=== PATIENT | male | born 1960 | race Caucasian/White ===

== ENCOUNTER 2022-10-29 11:19 | Outpatient (REF) | payer OTHER, SELFPAY ==
[2022-10-29 13:47] LABS: Appearance Urine Clear; Color Urine Yellow; Glucose Urine UA Negative (Negative); Leukocyte Esterase Urine Negative (Negative); Nitrite Urine Negative (Negative); PH 5.5 (5.0-9.0); Specific Gravity - Urine 1.025 (1.005-1.025); Urine Blood Negative (Negative); Urine Ketones Negative (Negative); Urine Protein Trace mg/dL (Neg-Trace)
[2022-10-29 13:49] LABS: Baso%MD 0.4 %; Eos%MD 3.1 %; Hematocrit 44.9 % (42.0-52.0); Hemoglobin 15.4 g/dl (14.0-18.0); IG%MD 0.4 %; Lymph%MD 30.3 %; Mean Corpuscular HGB Conc 34.3 g/dl (31.0-36.0); Mean Corpuscular Hemoglobin 32.8 pg (27.0-33.0); Mean Corpuscular Volume 95.5 fL (80.0-98.0); Mean Platelet Volume 12.4 fL (9.4-12.4); Mono%MD 6.6 %; Neut%MD 59.2 %; Platelet Count 151 X10*3/uL (160-400); Red Cell Distribution Width 11.7 % (11.0-16.0); White Blood Count 5.1 X10*3/uL (4.8-10.8)
[2022-10-29 13:50] LABS: Bacteria Urine None Seen (None Seen); Hyaline Casts Urine 0-2 /LPF (0-2); RBC Urine 0-2 /HPF (0-2); Squamous Epithelial Cell Urine 0-2 /HPF (0-2); WBC Urine 0-5 /HPF (0-5)
[2022-10-29 14:42] LABS: Alanine Aminotransferase 30 U/L (0-40); Albumin Level 4.7 g/dL (3.5-5.0); Alkaline Phosphatase 98 U/L (39-117); Anion Gap 13 (12-20); Aspartate Amino Transferase 27 U/L (5-37); Bilirubin Total 0.7 mg/dL (0.0-1.0); Blood Urea Nitrogen 13 mg/dL (9-16); Calcium 9.7 mg/dL (8.4-10.2); Carbon Dioxide 29 mmol/L (22-29); Chloride 107 mmol/L (96-108); Cholesterol 194 mg/dL; Estimated Glomerular Filt Rate > 60; Glucose Fasting 98 mg/dL (60-99); HDL Cholesterol 67 mg/dL; LDL Cholesterol Calculated 105 mg/dl; Potassium 3.9 mmol/L (3.3-5.1); Sodium 145 mmol/L (135-145); Total Protein 7.1 g/dL (6.5-8.0); Triglycerides 112 mg/dL
[2022-10-29 14:45] LABS: TSH reflex Free T4 2.66 uIU/mL (0.32-4.0)
[2022-10-29 15:06] LABS: Band Neutrophils Percent 1 % (3-5); Basophils Abs Manual 0.1 X10*3/uL (0.0-0.2); Basophils Percent Manual 1 % (0-2); Eosinophils Absolute Manual 0.1 X10*3/uL (0.0-0.4); Eosinophils Percent Manual 1 % (0-4); Lymphocytes Absolute Manual 1.6 X10*3/uL (1.2-4.9); Lymphocytes Percent Manual 31 % (20-40); Monocytes Absolute Manual 0.2 X10*3/uL (0.1-1.2); Monocytes Percent Manual 4 % (2-11); Neutrophils Absolute Manual 3.2 X10*3/uL (2.0-8.3); Neutrophils Percent Manual 62 % (45-73)
[2022-10-29 15:07] LABS: RBC Morphology NORMAL
[2022-10-29 15:08] LABS: Large Platelet PRESENT; Platelet Estimate SLIGHTLY DECREASED (NORMAL); Platelet Morphology Comment NOTED
[2022-11-02 19:23] LABS: PSA, Ultra Sensitive 1.04 ng/mL
== END 2022-10-29 11:20 | disposition home or self-care (01) ==
LOC: HO.HMGCLDS 11:19
PROVIDERS: PCP Internal Medicine; Visit Provider Internal Medicine
DX: Z12.5 Encounter for screening for malignant neoplasm of prostate (principal); I48.91 Unspecified atrial fibrillation; I10 Essential (primary) hypertension; E78.5 Hyperlipidemia, unspecified
CPT/HCPCS: 36415; 80053; 80061; 81001; 84153; 84443; 85007; 85027

== ENCOUNTER 2022-10-31 12:58 | Outpatient (AMB) | payer OTHER, SELFPAY ==
--- NOTE | 2022-10-31 13:05 | A.OFFPC_ITS ---
Vital Signs 10/31/22 13:06 Height 6 ft 1 in Weight 192 lb 8 oz BMI 25.4 BP 140/82 H Blood Pressure Location Lt brachial Position Sitting Pulse 87 Pulse Source Pulse Oximeter Pulse Oximetry (%) 98 Oxygen Delivery Method Room Air Intake Visit Reasons: Annual PE Allergies No Known Allergies Allergy (Verified 10/31/22 13:09) Medication List - Last Reconciled 10/31/22 by Afshan Perla MD apixaban (Eliquis) 5 mg PO BID diltiazem HCl ER 300 mg PO DAILY rosuvastatin (Crestor) 10 mg PO DAILY Tobacco use date assessed: 10/31/22 Dental Screening Dental Screen Date: 10/31/22 Did you have a dental visit in the last 12 months?: Yes Did you have a dental problem in the last 6 months where you did not have access to dental care?: No Was dental information given to patient?: No HPI Annual PE HPI Details patient presents for physical. He underwent cardioversion 2 weeks ago for recurrent AFib. pt denies palpitation chest pain or shortness of breath. [facility] Social History Housing: House Patient Tobacco Use Status: Never used Tobacco e-Cigarette/Vaping Use: Never Used service: No Current occupational status: employed Cognitive needs: No Hearing needs: No Vision needs: No Questionnaire PHQ-9 Over the last 2 weeks, how often have you been bothered by any of the following problems? 1. Little interest or pleasure in doing things: not at all 2. Feeling down, depressed, or hopeless: not at all 3. Trouble falling or staying asleep, or sleeping too much: not at all 4. Feeling tired or having little energy: not at all 5. Poor appetite or overeating: not at all 6. Feeling bad about yourself - or that you are a failure or have let yourself or your family down: not at all 7. Trouble concentrating on things, such as reading the newspaper or watching television: not at all 8. Moving or speaking so slowly that other people could have noticed. Or the opposite - being so fidgety or restless that you have been moving around a lot more than usual: not at all 9. Thoughts that you would be better off or of hurting yourself in some way: not at all Total score: 0 Depression Screening Interpretation: Negative Source: Developed by Bel Bowden Kurt Kroenke and colleagues, with an educational isabel from [employer]. Thrive Questionnaire Date Thrive assessed: 10/31/22 I am a: Patient What is your living situation today?: I have a steady place to live Within the past 12 months, did the food you bought not last and you didn't have the money to get more?: Never true Within the past 12 months, did you worry whether your food would run out before you got money to buy more?: Never true Do you have trouble paying for medicines?: No Do you have trouble getting transportation to medical appointments?: No Do you have trouble paying your heating and electricity bill?: No Do you have trouble taking care of your child, family member or friend?: No Do you have trouble with day-to-day activities such as bathing, preparing meals, shopping, managing finances, etc.?: No Are you currently unemployed and looking for a job?: No Are you interested in more education?: No AUDIT C Alcohol Use Questionnaire (AUDIT-C) 1. How often do you have a drink containing alcohol?: Monthly or less 2. How many drinks containing alcohol do you have on a typical day when you are drinking?: 1 or 2 3. How often do you have six or more drinks on one occasion?: Never Total Score: 1 Score Reviewed/Action Taken: Yes MADDISON-7 AMB Questionnaire MADDISON-7 Date MADDISON - 7 assessed: 10/31/22 Feeling nervous, anxious, or on edge: 0 = Not at all Not being able to stop or control worryin = Not at all Worrying too much about different things: 0 = Not at all Trouble relaxin = Not at all Being so restless that it is hard to sit still: 0 = Not at all Becoming easily annoyed or irritable: 0 = Not at all Feeling afraid as if something awful might happen: 0 = Not at all Total MADDISON-7 score (0-4 normal; 5-9 mild; 10-14 moderate; 15-21 severe): 0 Source: Developed by Bel Bowden Kurt Kroenke and colleagues, with an educational isabel from [employer]. Review of Systems Const All systems reviewed & are unremarkable except as noted in HPI and below Reports no additional complaints Eyes Reports no additional complaints ENT Reports no additional complaints Card Reports no additional complaints Resp Reports no additional complaints GI Reports no additional complaints Reports no additional complaints Physical exam (Primary Care) Vital Signs: Last Vital Signs Pulse 87 10/31/22 13:06 BP 140/82 H 10/31/22 13:06 Pulse Ox 98 10/31/22 13:06 Oxygen Delivery Method Room Air 10/31/22 13:06 BMI result Body Mass Index 25.4 Tobacco/Smoking Status: Tobacco use Status Tobacco use date assessed 10/31/22 10/31/22 13:09 Patient Tobacco Use Status Never used Tobacco 10/31/22 13:09 e-Cigarette/Vaping Use Never Used 10/31/22 13:09 Depression Screening Interpretation: Negative Const General: no acute distress HENMT Head: Yes normal to inspection Ears: hearing grossly normal bilaterally Face and sinus: Yes normal facial exam Teeth and gingiva: dentition normal Eyes General: appearance normal, both eyes and all related structures Neck Neck: Yes no lymphadenopathy and Yes supple Resp Effort & Inspection: normal respiratory effort Auscultation: clear to auscultation bilaterally Cardio Rhythm: regular rhythm Heart sounds: S1 normal heart sound present and S2 normal heart sound present GI Inspection: Yes normal to inspection Palpation (GI): Soft to palpation Percussion: Yes normal to percussion Auscultation: normal bowel sounds Assessment and Plan Assessment & Plan (1) Hx of colonoscopy: Comment: 2015, recheck in 5 yrs Code(s): Z98.890 - Other specified postprocedural states Plan: Referred to GI for colonoscopy (2) A-fib: Comment: 04/30 and 06/28 hospitalized at [facility], s/p cardioversion 10/28 Code(s): I48.91 - Unspecified atrial fibrillation Plan: follow-up with Cardiology at [facility], cutting down on alcohol intake discussed with the patient. EKG today A fib with HR 84, (3) HTN (hypertension): Code(s): I10 - Essential (primary) hypertension Plan: increase Ditiazem to 300 mg for HTN and A fib (4) Hyperlipidemia: Code(s): E78.5 - Hyperlipidemia, unspecified Plan: cont statin (5) Annual physical exam: Code(s): Z00.00 - Encounter for general adult medical examination without abnormal findings Plan: well balanced diet and regular exercise discussed.f/u 2 months Orders: Referrals Gastroenterology Referral Z00.00 - Encounter for general adult medical examination without abnormal findings, Z98.890 - Other specified postprocedural states Medications: New diltiazem HCl ER 300 mg PO DAILY 90 caps 0RF Discontinued diltiazem HCl ER (DILT-XR) Discontinued Reason: Doctor's Order 240 mg PO DAILY 90 caps 1RF Coding Level of Care Code Est Pt Prev Care 40-64y(20621) Diagnoses Hx of colonoscopy Z98.890 A-fib I48.91 HTN (hypertension) I10 Hyperlipidemia E78.5 Annual physical exam Z00.00
[2022-10-31 13:06] VITALS: BP 140/82; PULSE 87; O2SAT 98; BMI 25.4
== END 2022-10-31 14:14 | disposition home or self-care (01) ==
PROVIDERS: Visit Provider Internal Medicine
DX: Z98.890 Other specified postprocedural states (principal); I48.91 Unspecified atrial fibrillation; I10 Essential (primary) hypertension; E78.5 Hyperlipidemia, unspecified; Z00.00 Encounter for general adult medical examination without abnormal findings
CPT/HCPCS: 99396

== ENCOUNTER 2023-01-02 13:54 | Outpatient (AMB) | payer OTHER, SELFPAY ==
[2023-01-02 14:19] VITALS: BP 140/90; PULSE 102; O2SAT 97; BMI 25.7
--- NOTE | 2023-01-02 14:19 | MHC.PC.OV ---
Vital Signs 01/02/23 14:19 Height 6 ft 1 in Weight 195 lb BMI 25.7 BP 140/90 H Blood Pressure Location Lt brachial Position Sitting Pulse 102 H Pulse Source Pulse Oximeter Pulse Oximetry (%) 97 Oxygen Delivery Method Room Air Intake Visit Reasons: 2m follow up Intake Note: Pt is here today for 2 months follow up visit. Allergies No Known Allergies Allergy (Verified 01/02/23 14:22) Tobacco use date assessed: 01/02/23 HPI 2m follow up HPI Details Patient presents for the follow-up of paroxysmal AFib hypertension hyperlipidemia. He denies recurrent palpitations and has been taking Eliquis for anticoagulation. Patient will have a repeat echocardiogram ordered by cardiology for cardiomyopathy with decreased ejection fraction while in atrial fibrillation with RVR. [facility] Social History Housing: House Patient Tobacco Use Status: Never used Tobacco e-Cigarette/Vaping Use: Never Used service: No Current occupational status: employed Cognitive needs: No Hearing needs: No Vision needs: No Questionnaire Thrive Questionnaire Date Thrive assessed: 10/31/22 MADDISON-7 AMB Questionnaire MADDISON-7 Date MADDISON - 7 assessed: 10/31/22 Source: Developed by Drs. Felipe Penaloza, Bel Lovett, Bernardo Moore and colleagues, with an educational isabel from [employer]. Review of Systems Const All systems reviewed & are unremarkable except as noted in HPI and below Reports no additional complaints Eyes Reports no additional complaints ENT Reports no additional complaints Card Reports no additional complaints Resp Reports no additional complaints GI Reports no additional complaints Physical exam (Primary Care) Vital Signs: Last Vital Signs Pulse 102 H 01/02/23 14:19 BP 140/90 H 01/02/23 14:19 Pulse Ox 97 01/02/23 14:19 Oxygen Delivery Method Room Air 01/02/23 14:19 BMI result Body Mass Index 25.7 Tobacco/Smoking Status: Tobacco use Status Tobacco use date assessed 01/02/23 01/02/23 14:24 Patient Tobacco Use Status Never used Tobacco 01/02/23 14:24 e-Cigarette/Vaping Use Never Used 01/02/23 14:24 Thrive Assessment: Date of Thrive Assessment Date Thrive assessed 10/31/22 01/02/23 14:24 Const General: no acute distress HENMT Head: Yes normal to inspection Ears: hearing grossly normal bilaterally Throat: Yes posterior oropharynx normal Eyes General: appearance normal, both eyes and all related structures Neck Neck: Yes supple Cardio Rhythm: regular rhythm Heart sounds: S1 normal heart sound present and S2 normal heart sound present GI Inspection: Yes normal to inspection Palpation (GI): Soft to palpation Percussion: Yes normal to percussion Auscultation: normal bowel sounds Assessment and Plan Assessment & Plan (1) HTN (hypertension): Code(s): I10 - Essential (primary) hypertension Plan: Add 5 mg of lisinopril for better blood pressure controlled and cardiomyopathy. Check basic metabolic panel in 1 week (2) A-fib: Comment: 04/30 and 06/28 hospitalized at [facility], s/p cardioversion 10/28 Code(s): I48.91 - Unspecified atrial fibrillation Plan: Continue Cardizem and follow-up with Cardiology for repeat echocardiogram. Patient will continue on Eliquis (3) Hyperlipidemia: Code(s): E78.5 - Hyperlipidemia, unspecified Plan: Continue statin Orders: Orders Basic Metabolic Panel 1 Week I10 - Essential (primary) hypertension, I48.91 - Unspecified atrial fibrillation Medications: New lisinopril 5 mg PO DAILY 30 tabs 1RF Coding Level of Care Code Est Pt Level 4 (57144) Diagnoses HTN (hypertension) I10 A-fib I48.91 Hyperlipidemia E78.5
== END 2023-01-02 15:12 | disposition home or self-care (01) ==
LOC: HO.HMGC 13:54
PROVIDERS: PCP Internal Medicine; Visit Provider Internal Medicine
DX: I10 Essential (primary) hypertension (principal); I48.91 Unspecified atrial fibrillation; E78.5 Hyperlipidemia, unspecified
CPT/HCPCS: 99214

== ENCOUNTER 2023-01-23 15:23 | Outpatient (AMB) | payer OTHER, SELFPAY ==
--- NOTE | 2023-01-23 15:29 | MHC.OFFVIS ---
Intake Vital Signs 01/23/23 15:32 Height 6 ft 1 in Weight 190 lb 0.615 oz BMI 25.1 BP 171/107 H Blood Pressure Location Rt brachial Position Sitting Pulse 126 H Intake Visit Reasons: Colonoscopy Screening Intake Note: Patient presents to in office visit today as a new patient for colonoscopy screening. CC: Patient denies having any GI symptoms today. Last colonoscopy done about 7 years ago at [facility]. Attorney At Law Required: No Accompanied by: Self / Same As Patient Allergies No Known Allergies Allergy (Verified 01/23/23 15:40) HPI Colonoscopy Screening HPI Details 62-year-old male here for preprocedural meeting to discuss a screening colonoscopy. He is referred by Afshan Perla of [facility] primary care. PMX AFib-on Eliquis Nonischemic cardiomyopathy with reduced left ventricular ejection fraction Echocardiogram showing reduced left ventricular ejection fraction of 20-25%? Did this improve after cardioversion Hypertension High cholesterol Bilateral lung infiltrate (CT shows ground-glass opacities consistent with viral pneumonia) * SURGICAL HISTORY Colonoscopy 2016 Cardioversion for ib-[facility] Deviated septum repair 10 yrs ago * ALLERGIES: NKDA * Viraloid LABS: Laboratory Tests 10/29/22 10:28 WBC 5.1 Hgb 15.4 Hct 44.9 Plt Count 151 L Estimated GFR > 60 Total Bilirubin 0.7 AST 27 ALT 30 Alkaline Phosphata se 98 TSH 2.66 TODAY'S VISIT He has had 2 prior colonoscopies he is unsure if this was at [facility] or [facility] (? Dr. Mon/Gilberto). He is unsure if there were polyps. He has new on set afib and is on Eliquis, Dr. Jai Lopez at cardiology. We will need clearance to stop this from them. There are no prior problems with anesthesia or sedation. He denies any bowel or upper GI problems. No ID problems. His mother had colon polyps. [facility] Medical History History of cardioversion Surgical History Hx of colonoscopy Social History Housing: House Patient Tobacco Use Status: Never used Tobacco e-Cigarette/Vaping Use: Never Used service: No Current occupational status: employed Cognitive needs: No Hearing needs: No Vision needs: No Review of Systems Const Denies fatigue, Denies fever(s), Denies night sweats, Denies poor appetite and Denies weight loss ENT Reports Normal hearing present, Denies dental pain, Denies dysphagia, Denies hearing loss, Denies mouth pain, Denies odynophagia, Denies throat swelling, Denies tongue swelling and Reports other (Dentition adequate) Card Reports no additional complaints Resp Reports no additional complaints GI Denies abdominal pain, Denies melena, Denies bloating, Denies hematochezia, Denies constipation, Denies GI cramping, Denies dysphagia, Denies excessive flatus, Denies early satiety, Denies heartburn, Denies diarrhea, Denies nausea, Denies odynophagia, Denies vomiting and Denies hematemesis Skin/Breast Denies pruritus, Denies lesions, Denies rash and Denies jaundice Neuro Reports Normal hearing present and Denies Abnormal speech present Endo Denies fatigue Aller/Immun Denies throat swelling and Denies tongue swelling Physical Exam Vital Signs: Last Vital Signs Pulse 126 H 01/23/23 15:32 BP 171/107 H 01/23/23 15:32 BMI result Body Mass Index 25.1 Const General: cooperative, no acute distress, well developed and well groomed Nutritional Appearance: average body habitus and well nourished Orientation/consciousness: oriented to person, oriented to place and oriented to time Limitations: No language barrier HEENT Head: Yes normocephalic and Yes atraumatic Eyes General: appearance normal, both eyes and all related structures Pupils: Equal, round and reactive pupils present Neck Neck: Yes normal visual inspection and Yes no lymphadenopathy Thyroid: Thyroid normal Resp Effort & Inspection: normal respiratory effort and able to speak in complete sentences Auscultation: clear to auscultation bilaterally Cardio Rate: regular rate Rhythm: abnormal rhythm irregularly irregular Heart sounds: Normal, physiologic split S2 sound present Peripheral pulses: radial pulses present and posterior tibial pulses present GI Inspection: No distended and No Abdominal panniculus present Palpation (GI): Soft to palpation, nontender, no guarding, not rigid and No hepatosplenomegaly present Percussion: Yes normal to percussion Auscultation: normal bowel sounds Rectal Exam - Male: Yes deferred Skin General skin exam: no rashes or lesions noted, turgor normal, skin not dry, no jaundice, No spider nevi and no striae Rashes: no rashes Nails: normal Neuro General: oriented to person, oriented to place and oriented to time Cranial nerves: Yes Equal, round and reactive pupils present and Yes Normal hearing present Speech: No Abnormal speech present Extrem General: Yes normal to inspection, No clubbing, No cyanosis and No edema Psych Appearance: grossly normal and well kempt Mental Status: mental status grossly normal Speech and movement: Normal speech and movement present Affect: normal affect Attitude: cooperative Thought process: Normal thought process present and not confabulating Thought content: Normal thought content present Insight: Limited insight present (Psych) Judgement: Limited judgement present (Psych) Assessment & Plan Assessment & Plan (1) Pre-op examination: Code(s): Z01.818 - Encounter for other preprocedural examination Plan: He has had 2 prior colonoscopies he is unsure if this was at [facility] or [facility] (? Dr. Mon/Gilberto). He is unsure if there were polyps. He has new on set afib and is on Ivon, Dr. Jai Lopez at cardiology. We will need clearance to stop this from them. There are no prior problems with anesthesia or sedation. He denies any bowel or upper GI problems. No ID problems. His mother had colon polyps. (2) Nonischemic cardiomyopathy: Code(s): I42.8 - Other cardiomyopathies (3) A-fib: Comment: 04/30 and 06/28 hospitalized at [facility], s/p cardioversion 10/28 Code(s): I48.91 - Unspecified atrial fibrillation (4) Family history of polyps in the colon: Code(s): Z83.719 - Family history of colon polyps, unspecified Orders: Orders Colonoscopy - GI Use Only Today Z83.719 - Family history of colon polyps, unspecified Medications: New peg 3350-electrolytes 236-22.74-6.74 -5.86 gram (Golytely) until fecal effluent is clear; do not exceed a total volume of 2,000 mL 240 mL PO Q10M 1 day 4,000 mL 0RF Z12.11 - Encounter for screening for malignant neoplasm of colon Coding Level of Care Code New Pt Level 3 (22104) Diagnoses Pre-op examination Z01.818 Nonischemic cardiomyopathy I42.8 A-fib I48.91 Family history of polyps in the colon Z83.719
[2023-01-23 15:32] VITALS: BP 171/107; PULSE 126; BMI 25.1
== END 2023-01-23 16:18 | disposition home or self-care (01) ==
PROVIDERS: PCP Internal Medicine; Visit Provider Nurse Practitioner
DX: Z01.818 Encounter for other preprocedural examination (principal); I42.8 Other cardiomyopathies; I48.91 Unspecified atrial fibrillation; Z83.719 Family history of colon polyps, unspecified
CPT/HCPCS: 99203

== ENCOUNTER → 2023-01-23 15:23 | Outpatient (BNVA) | payer OTHER, SELFPAY | PROVIDERS: PCP Internal Medicine; Visit Provider Nurse Practitioner ==

== ENCOUNTER 2023-02-21 11:00 | Outpatient (AMB) | payer OTHER, SELFPAY ==
[2023-02-21 11:05] VITALS: BP 140/80; PULSE 87; O2SAT 98; BMI 26.0
--- NOTE | 2023-02-21 11:05 | A.OFFPC_ITS ---
Vital Signs 02/21/23 11:05 Height 6 ft 1 in Weight 197 lb BMI 26.0 BP 140/80 H Blood Pressure Location Rt brachial Position Sitting Pulse 87 Pulse Source Pulse Oximeter Pulse Oximetry (%) 98 Oxygen Delivery Method Room Air Intake Visit Reasons: one month fu Intake Note: pt is here for 1 month f/u Tire Inspector Required: No Accompanied by: Self / Same As Patient Allergies lisinopril Adverse Reaction (Intermediate, Verified 02/21/23 11:29) pruritus Medication List - Last Reconciled 02/21/23 by Afshan Perla MD apixaban (Eliquis) 5 mg PO BID diltiazem HCl ER 300 mg PO DAILY olmesartan 20 mg PO DAILY rosuvastatin (Crestor) 10 mg PO DAILY Tobacco use date assessed: 02/21/23 Dental Screening Dental Screen Date: 02/21/23 Did you have a dental visit in the last 12 months?: Yes Did you have a dental problem in the last 6 months where you did not have access to dental care?: No Was dental information given to patient?: Patient has dentist HPI one month fu HPI Details Patient presents for the follow-up of hypertension and tachycardia induced cardiomyopathy, recovered EF%. Pt could not tolerate Lisinopril, pruritus but no rash. PFSH Medical History History of cardioversion Surgical History Hx of colonoscopy Social History Housing: House Patient Tobacco Use Status: Never used Tobacco e-Cigarette/Vaping Use: Never Used service: No Current occupational status: employed Cognitive needs: No Hearing needs: No Vision needs: No Questionnaire Thrive Questionnaire Date Thrive assessed: 10/31/22 MADDISON-7 AMB Questionnaire MADDISON-7 Date MADDISON - 7 assessed: 10/31/22 Source: Developed by Drs. Felipe Penaloza, Bel Lovett, Bernardo Moore and colleagues, with an educational isabel from [employer]. Review of Systems Const All systems reviewed & are unremarkable except as noted in HPI and below Reports no additional complaints Eyes Reports no additional complaints ENT Reports no additional complaints Card Reports no additional complaints Resp Reports no additional complaints GI Reports no additional complaints Reports no additional complaints Physical exam (Primary Care) Vital Signs: Last Vital Signs Pulse 87 02/21/23 11:05 BP 140/80 H 02/21/23 11:05 Pulse Ox 98 02/21/23 11:05 Oxygen Delivery Method Room Air 02/21/23 11:05 BMI result Body Mass Index 26.0 Tobacco/Smoking Status: Tobacco use Status Tobacco use date assessed 02/21/23 02/21/23 11:06 Patient Tobacco Use Status Never used Tobacco 02/21/23 11:06 e-Cigarette/Vaping Use Never Used 02/21/23 11:06 Thrive Assessment: Date of Thrive Assessment Date Thrive assessed 10/31/22 02/21/23 11:06 Const General: no acute distress HENMT Head: Yes normal to inspection Face and sinus: Yes normal facial exam Resp Effort & Inspection: normal respiratory effort Auscultation: clear to auscultation bilaterally Cardio Rhythm: regular rhythm Heart sounds: S1 normal heart sound present and S2 normal heart sound present Assessment and Plan Assessment & Plan (1) Nonischemic cardiomyopathy: Comment: recoverd EF 02/28, F/U CARDIOLOGY Code(s): I42.8 - Other cardiomyopathies (2) HTN (hypertension): Code(s): I10 - Essential (primary) hypertension Plan: ADD OLMESARTAN 20 MG and cont Cardizem, f/u 1 month (3) A-fib: Comment: 04/30 and 06/28 hospitalized at [facility], s/p cardioversion 10/28 Code(s): I48.91 - Unspecified atrial fibrillation Plan: cont Cardizem and Eliquis (4) Hyperlipidemia: Code(s): E78.5 - Hyperlipidemia, unspecified Plan: cont Crestor Medications: New olmesartan 20 mg PO DAILY 90 tabs 0RF Discontinued lisinopril Discontinued Reason: Doctor's Order 5 mg PO DAILY 30 tabs 1RF Coding Level of Care Code Est Pt Level 4 (01956) Diagnoses Nonischemic cardiomyopathy I42.8 HTN (hypertension) I10 A-fib I48.91 Hyperlipidemia E78.5
== END 2023-02-21 15:04 | disposition home or self-care (01) ==
PROVIDERS: PCP Internal Medicine; Visit Provider Internal Medicine
DX: I42.8 Other cardiomyopathies (principal); I10 Essential (primary) hypertension; I48.91 Unspecified atrial fibrillation; E78.5 Hyperlipidemia, unspecified
CPT/HCPCS: 99214

== ENCOUNTER 2023-05-30 08:25 | Day surgery (SDC) | payer OTHER, SELFPAY ==
[2023-05-28 11:49] VITALS: BMI 25.1
--- NOTE | 2023-05-29 10:48 | HO.ANESPROP2 ---
Documented by User: Beth Laureano NP 05/29/23 14:04 HPI - Anesthesia Eval Consult details Narrative: 63yo M for Colonoscopy Follows [facility]. Optimized per letter. Last office visit 11/2022. s/p cardioversion 10/2022. F/U echo shows improved EF Eliquis for afib. OK to hold [facility] Active Problems Active Problems: All Active Problems (Updated 02/21/23 @ 15:03 by Afshan Perla MD) Family history of polyps in the colon (Acute) Pre-op examination (Acute) Nonischemic cardiomyopathy (Acute) HFrEF (heart failure with reduced ejection fraction) (Acute) Annual physical exam (Acute) Infiltrate of both lungs present on imaging study (Acute) A-fib (Acute) HTN (hypertension) (Acute) Hyperlipidemia (Acute) Past Medical History Medical History Nonischemic cardiomyopathy A-fib HTN (hypertension) Hyperlipidemia History of cardioversion Surgical History Surgical History Hx of nasal septoplasty Hx of colonoscopy Hx of colonoscopy Social History Social History Housing: House Patient Tobacco Use Status: Never used Tobacco e-Cigarette/Vaping Use: Never Used Use of substances other than those prescribed or required for medical reasons: No Are you DNR?: No Advance Directives: No Advance Directives Information Provided: Yes service: No Current occupational status: employed Cognitive needs: No Hearing needs: No Vision needs: No Meds Allergies Allergy/AdvReac Type Severity Reaction Status Date / Time lisinopril AdvReac Intermediate pruritus Verified 05/30/23 08:40 Exam Height,Weight and Vital Signs: Height 6 ft 1 in Weight 86.183 kg Narrative Narrative: ECHO 02/2023 1. Nml LV chamber size. Nml LV wall thickness. Mild reduced LV systolic function. LVEF 45-50%. Mild global hypokinesis. 2. Mild to moderate mitral regurg 3. c/w 06/2022, LV sys function has improved an is now mildly reduced. Degree of MR has slightly decreased and is now mild to mod. Estimated RA pressure was previously elevated and is now nml. Assessment and Plan Assessment Anesthesia Assessment: Chart Reviewed Documented by User: Juan Sandoval MD 05/30/23 10:13 PMFSH Past Medical History Medical History Nonischemic cardiomyopathy A-fib HTN (hypertension) Hyperlipidemia History of cardioversion Functional capacity: independent ambulation Family History Family history of problems with anesthesia: No Surgical History Surgical History Hx of nasal septoplasty Hx of colonoscopy Hx of colonoscopy History of Problems with Anesthesia: No Social History Social History Housing: House Patient Tobacco Use Status: Never used Tobacco e-Cigarette/Vaping Use: Never Used Use of substances other than those prescribed or required for medical reasons: No Are you DNR?: No Advance Directives: No Advance Directives Information Provided: Yes service: No Current occupational status: employed Cognitive needs: No Hearing needs: No Vision needs: No Meds Allergies Allergy/AdvReac Type Severity Reaction Status Date / Time lisinopril AdvReac Intermediate pruritus Verified 05/30/23 08:40 Exam Airway Mallampati Class: I TM Dist: >3cm Neck ROM: Full Loose/Missing/Broken Teeth: No Heart: irr rate and rhythm Lungs: cta b/l Assessment and Plan Final Anesthetic Review Family History of Problems with Anesthesia: No History of Problems with Anesthesia: No NPO: Yes ASA Class: III Final Preanesthetic Review: Meds/Allgs Chart Reviewed, Consent Obtained/Reviewed and Anes Risks/Benef Reviewed Patient Risk: Intermediate Procedure Risk: Intermediate Anesthetic Plan Anesthetic Plan: MAC: Disposition: Standard PACU
[2023-05-30 08:40] VITALS: BMI 25.9
[2023-05-30 09:28] VITALS: BP 149/82; PULSE 112; RESP 15; TEMP 36.3; O2SAT 98
--- NOTE | 2023-05-30 09:45 | ECG_ITS ---
Test Reason : rhythm check Blood Pressure : / mmHG Vent. Rate : 093 BPM Atrial Rate : 000 BPM P-R Int : 000 ms QRS Dur : 094 ms QT Int : 372 ms P-R-T Axes : 000 -27 023 degrees QTc Int : 462 ms Atrial fibrillation Septal infarct , age undetermined Abnormal ECG No previous ECGs available Referred By: Juan Sandoval Electronically Signed By:BRIGIDA ÁLVAREZ MD
[2023-05-30] MEDS: Lactated Ringers 1,000 ML 100 ML IVCONT (09:51)
--- NOTE | 2023-05-30 10:00 | P.HPSUR_ITS ---
Pre-Procedural Eval Section A - 24 Hr Update-Section A only Date of Service: 05/30/23 Section B - Complete if H&P > 30 days Chief Complaint: Encounter for screening for malignant neoplasm of Relevant Family History (Specify if Yes): Yes Relevant Social History: None Present Medications: see Short Stay Collaborative assessment Medical History: Significant History (AFib-on Eliquis Nonischemic cardiomyopathy with reduced left ventricular ejection fraction Echocardiogram showing reduced left ventricular ejection fraction of 20-25%? Did this improve after cardioversion Hypertension High cholesterol Bilateral lung infiltrate (CT shows ground-glass opacities con) History of Previous Operations: Relevant previous surgery/procedure and date(s) (Colonoscopy 2016 Cardioversion for [facility] Deviated septum repair 10 yrs ago) Allergies: Allergies Allergy/AdvReac Type Severity Reaction Status Date / Time lisinopril AdvReac Intermediate pruritus Verified 05/30/23 08:40 Review of Systems Sugical H&P ROS: Negative: Constitution, Cardiovascular, Respiratory, Neurological, Psychiatric, Hem-Onc, Allergic/Immunologic, Gastrointestinal, Genitourinary, Musculoskeletal, Integumentary, Endocrine and Eyes/Ears/Nose/Throat Exam Surgical H&P Exam: Normal: HEENT, Normal: Heart, Normal: Lungs, Normal: Extremities, Normal: Abdomen, Normal: Skin and Normal: Neurological Plan Diagnosis/Plan: Unchanged I have reviewed the history and physical and performed a pertinent physical examination on my patient. No changes have occurred unless specified. Time Spent With Patient Time: Total time managing care of this patient today ____ minutes.
--- NOTE | 2023-05-30 10:00 | PC.NURSE ---
pt found to be in afib, ekg ordered per anesthesia. ok'd to proceed due to pt being asymptomatic. 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
--- NOTE | 2023-05-30 10:44 | PC.NURSE ---
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
--- NOTE | 2023-05-30 11:18 | P.OP_ITS ---
Operative Note Operative Note Date of Service: 05/30/23 Narrative: Operative Information Procedure Description: Colonoscopy Indication: screening, FH of colon polyps Anesthesia: MAC COLONOSCOPY Instrument: Olympus variable stiffness pediatric scope 190L Colonoscopy Monitoring: Vital signs and clinical assessment, continuous EKG monitoring, Pulse oximetry, Carbon Dioxide monitoring and blood pressure monitoring were done throughout the procedure. Colon withdrawal time was 10 minutes. Procedure: The patient was placed in the left lateral decubitis position and pre-procedure medications were administered. After a digital rectal examination of the ano-rectum, the video colonoscope was inserted into the rectum and advanced through the colon to the cecum/TI. The colonoscope was slowly withdrawn in a retrograde panoramic fashion and the colon mucosa was carefully examined including a retroflexed view of the rectum. Findings and interventions are described below. Procedure Difficulty: easy Findings: Terminal Ileum-normal Cecum:normal Right sided retroflexion- normal Ascending Colon: normal Transverse Colon -normal Descending Colon:normal Sigmoid Colon: normal Rectum: Retroflexion with small internal hemorrhoids, grade I Anorectum - normal Colon preparation: [place] Bowel Preparation Scale Right colon; 2 Transverse colon: 2 Left colon; 3 (0 = Unprepared colon segment with mucosa not seen due to solid stool that cannot be cleared. 1 = Portion of mucosa of the colon segment seen, but other areas of the colon segment not well seen due to staining, residual stool and/or opaque liquid. 2 = Minor amount of residual staining, small fragments of stool and/or opaque liquid, but mucosa of colon segment seen well. 3 = Entire mucosa of colon segment seen well with no residual staining, small fragments of stool or opaque liquid) Impression and Post Procedure Diagnosis: internal hemorrhoids Plan: High fiber diet leaflet Avoid straining at stool, epsom salts and sitz bath, anusol supps or cream Repeat Colonoscopy in 5 years due to FH of colon polyps or earlier if clinically indicated Above findings were reviewed with the patient and relevant handouts were provided if indicated.
[2023-05-30 11:24] VITALS: BP 106/68; PULSE 84; RESP 16; TEMP 36.1; O2SAT 97
[2023-05-30 11:39] VITALS: BP 130/88; PULSE 94; RESP 16; TEMP 36.4; O2SAT 99
== END 2023-05-30 12:39 | disposition home or self-care (01) ==
PROVIDERS: PCP Internal Medicine; Visit Provider Internal Medicine Gastroenterology
PROC: 0DJD8ZZ Inspection of Lower Intestinal Tract, Via Natural or Artificial Opening Endoscopic (ICD-10-PCS; CPT 45378; principal; 2023-05-30 10:50)
DX: Z12.11 Encounter for screening for malignant neoplasm of colon (principal); Z83.719 Family history of colon polyps, unspecified; K64.0 First degree hemorrhoids; I48.91 Unspecified atrial fibrillation; I42.8 Other cardiomyopathies; Z79.01 Long term (current) use of anticoagulants; I10 Essential (primary) hypertension; E78.00 Pure hypercholesterolemia, unspecified; Z79.899 Other long term (current) drug therapy
CPT/HCPCS: 45378; 93005; J2704

== ENCOUNTER → 2023-05-30 08:25 | Outpatient (BNV) | payer OTHER, SELFPAY | PROVIDERS: PCP Internal Medicine; Visit Provider Internal Medicine Gastroenterology | DX: Z12.11 Encounter for screening for malignant neoplasm of colon (principal); Z86.010 Personal history of colon polyps | CPT/HCPCS: 45378 ==

== ENCOUNTER → 2023-05-30 09:45 | Outpatient (BNV) | payer OTHER, SELFPAY | PROVIDERS: PCP Internal Medicine; Visit Provider Internal Medicine Cardiovascular Disease | DX: I48.91 Unspecified atrial fibrillation (principal) | CPT/HCPCS: 93010 ==

== ENCOUNTER 2023-06-03 14:17 | Outpatient (AMB) | payer OTHER, SELFPAY ==
[2023-06-03 14:20] VITALS: BP 134/76; PULSE 76; O2SAT 97; BMI 26.5
--- NOTE | 2023-06-03 14:20 | MHC.PC.OV ---
Vital Signs 06/03/23 14:20 Height 6 ft 1 in Weight 201 lb BMI 26.5 BP 134/76 Blood Pressure Location Lt brachial Position Sitting Pulse 76 Pulse Source Pulse Oximeter Pulse Oximetry (%) 97 Oxygen Delivery Method Room Air Intake Visit Reasons: Followup BP, meds Allergies lisinopril Adverse Reaction (Intermediate, Verified 06/03/23 14:30) pruritus Medication List - Last Reconciled 06/03/23 by Afshan Perla MD apixaban (Eliquis) 5 mg PO BID diltiazem HCl ER 300 mg PO DAILY olmesartan 20 mg PO DAILY rosuvastatin (Crestor) 10 mg PO DAILY Tobacco use date assessed: 06/03/23 Dental Screening Dental Screen Date: 06/03/23 Did you have a dental visit in the last 12 months?: Yes Did you have a dental problem in the last 6 months where you did not have access to dental care?: No Was dental information given to patient?: Patient has dentist HPI Followup BP, meds HPI Details Patient presents for the follow-up on hypertension hyperlipidemia and paroxysmal AFib stable on current medications. [facility] Medical History (Updated 06/03/23 @ 14:55 by Afshan Perla MD) HTN (hypertension) Hyperlipidemia A-fib Nonischemic cardiomyopathy History of cardioversion Surgical History (Updated 06/03/23 @ 14:53 by Afshan Perla MD) Hx of colonoscopy Hx of nasal septoplasty Hx of colonoscopy Social History Housing: House Patient Tobacco Use Status: Never used Tobacco e-Cigarette/Vaping Use: Never Used service: No Current occupational status: employed Cognitive needs: No Hearing needs: No Vision needs: No Questionnaire PHQ-9 Over the last 2 weeks, how often have you been bothered by any of the following problems? 1. Little interest or pleasure in doing things: not at all 2. Feeling down, depressed, or hopeless: not at all 3. Trouble falling or staying asleep, or sleeping too much: not at all 4. Feeling tired or having little energy: not at all 5. Poor appetite or overeating: not at all 6. Feeling bad about yourself - or that you are a failure or have let yourself or your family down: not at all 7. Trouble concentrating on things, such as reading the newspaper or watching television: not at all 8. Moving or speaking so slowly that other people could have noticed. Or the opposite - being so fidgety or restless that you have been moving around a lot more than usual: not at all 9. Thoughts that you would be better off or of hurting yourself in some way: not at all Total score: 0 Depression Screening Interpretation: Negative Depression Screening Done: Yes Source: Developed by Drs. Felipe Penaloza, Bel Lovett, Bernardo Moore and colleagues, with an educational isabel from [employer]. Thrive Questionnaire Date Thrive assessed: 06/03/23 I am a: Patient What is your living situation today?: I have a steady place to live Within the past 12 months, did the food you bought not last and you didn't have the money to get more?: Never true Within the past 12 months, did you worry whether your food would run out before you got money to buy more?: Never true Do you have trouble paying for medicines?: No Do you have trouble getting transportation to medical appointments?: No Do you have trouble paying your heating and electricity bill?: No Do you have trouble taking care of your child, family member or friend?: No Do you have trouble with day-to-day activities such as bathing, preparing meals, shopping, managing finances, etc.?: No Are you currently unemployed and looking for a job?: No Are you interested in more education?: No Please select the resources that you would like help with: None Currently or been in a relationship where the following occur: no concerns reported THRIVE Score: 0 AUDIT C Alcohol Use Questionnaire (AUDIT-C) 1. How often do you have a drink containing alcohol?: 2-3 times a week 2. How many drinks containing alcohol do you have on a typical day when you are drinking?: 1 or 2 3. How often do you have six or more drinks on one occasion?: Never Total Score: 3 MADDISON-7 AMB Questionnaire MADDISON-7 Date MADDISON - 7 assessed: 06/03/23 Feeling nervous, anxious, or on edge: 0 = Not at all Not being able to stop or control worryin = Not at all Worrying too much about different things: 0 = Not at all Trouble relaxin = Not at all Being so restless that it is hard to sit still: 0 = Not at all Becoming easily annoyed or irritable: 0 = Not at all Feeling afraid as if something awful might happen: 0 = Not at all Total MADDISON-7 score (0-4 normal; 5-9 mild; 10-14 moderate; 15-21 severe): 0 Source: Developed by Drs. Felipe Penaloza, Bel Lovett, Bernardo Moore and colleagues, with an educational isabel from [employer]. Review of Systems Const All systems reviewed & are unremarkable except as noted in HPI and below Reports no additional complaints Eyes Reports no additional complaints ENT Reports no additional complaints Card Reports no additional complaints Resp Reports no additional complaints Reports no additional complaints Musc Reports no additional complaints Physical exam (Primary Care) Vital Signs: Last Vital Signs Pulse 76 06/03/23 14:20 BP 134/76 06/03/23 14:20 Pulse Ox 97 06/03/23 14:20 Oxygen Delivery Method Room Air 06/03/23 14:20 BMI result Body Mass Index 26.5 Tobacco/Smoking Status: Tobacco use Status Tobacco use date assessed 06/03/23 06/03/23 14:32 Patient Tobacco Use Status Never used Tobacco 06/03/23 14:23 e-Cigarette/Vaping Use Never Used 06/03/23 14:23 PHQ-9: PHQ-9 Score PHQ-9: Total score 0 06/03/23 14:33 Depression Screening Interpretation: Negative Thrive Assessment: Date of Thrive Assessment Date Thrive assessed 06/03/23 06/03/23 14:33 Currently or been in a relationship where the following occur: no concerns reported Const General: no acute distress HENMT Head: Yes normal to inspection General nose exam: Normal external nose present Throat: Yes posterior oropharynx normal Eyes General: appearance normal, both eyes and all related structures Neck Neck: Yes supple Resp Effort & Inspection: normal respiratory effort Auscultation: clear to auscultation bilaterally Cardio Rhythm: regular rhythm Heart sounds: S1 normal heart sound present and S2 normal heart sound present GI Palpation (GI): Soft to palpation Assessment and Plan Assessment & Plan (1) A-fib: Comment: 04/30 and 06/28 hospitalized at [facility], s/p cardioversion 10/28, f/u PVC, Echo 01/28 mod dilated LA, LVEF 45-50%, mild global hypokinesis , mild-mod MR Code(s): I48.91 - Unspecified atrial fibrillation Plan: Continue diltiazem and Eliquis (2) Hyperlipidemia: Code(s): E78.5 - Hyperlipidemia, unspecified Plan: Continue statin (3) Annual physical exam: Code(s): Z00.00 - Encounter for general adult medical examination without abnormal findings (4) Hx of colonoscopy: Comment: 05/2022 negative recheck 5 yrs, (FHx of polyps) Dr. Lau Code(s): Z98.890 - Other specified postprocedural states (5) HTN (hypertension): Code(s): I10 - Essential (primary) hypertension Plan: Continue olmesartan and diltiazem Orders: Orders Basic Metabolic Panel Today I48.91 - Unspecified atrial fibrillation, I50.20 - Unspecified systolic (congestive) heart failure Complete Blood Count Auto Diff 5 Months E78.5 - Hyperlipidemia, unspecified, I48.91 - Unspecified atrial fibrillation, Z00.00 - Encounter for general adult medical examination without abnormal findings PSA,Total (Free>4and<10) 5 Months E78.5 - Hyperlipidemia, unspecified, I48.91 - Unspecified atrial fibrillation, Z00.00 - Encounter for general adult medical examination without abnormal findings Complete Blood Count Auto Diff Today I48.91 - Unspecified atrial fibrillation, I50.20 - Unspecified systolic (congestive) heart failure Comprehensive [place]. Panel Fast 5 Months E78.5 - Hyperlipidemia, unspecified, I48.91 - Unspecified atrial fibrillation, Z00.00 - Encounter for general adult medical examination without abnormal findings Lipid Panel 5 Months E78.5 - Hyperlipidemia, unspecified, I48.91 - Unspecified atrial fibrillation, Z00.00 - Encounter for general adult medical examination without abnormal findings TSH reflex Free T4 5 Months E78.5 - Hyperlipidemia, unspecified, I48.91 - Unspecified atrial fibrillation, Z00.00 - Encounter for general adult medical examination without abnormal findings UA w Microscopic 5 Months E78.5 - Hyperlipidemia, unspecified, I48.91 - Unspecified atrial fibrillation, Z00.00 - Encounter for general adult medical examination without abnormal findings Coding Level of Care Code Est Pt Level 4 (62539) Diagnoses A-fib I48.91 Hyperlipidemia E78.5 Annual physical exam Z00.00 Hx of colonoscopy Z98.890 HTN (hypertension) I10
== END 2023-06-03 14:55 | disposition home or self-care (01) ==
PROVIDERS: PCP Internal Medicine; Visit Provider Internal Medicine
DX: I48.91 Unspecified atrial fibrillation (principal); E78.5 Hyperlipidemia, unspecified; Z00.00 Encounter for general adult medical examination without abnormal findings; Z98.890 Other specified postprocedural states; I10 Essential (primary) hypertension
CPT/HCPCS: 99214